=== PATIENT | male | born 1960 | race Caucasian/White ===

== ENCOUNTER 2022-03-18 10:44 | Emergency (ER) | payer OTHER ==
--- OUTSIDE RECORDS SUMMARY | 2022-03-18 11:09 | XMS REPORT | Continuity of Care Document ---
:1960 Author Organization [facility] t Address [address] [place] [address] [address]. [address] [place] [address] Care Team Providers Name Role Phone Asked, No Pcp Primary Care Physician Unavailable RUDI KAUR Attending Clinician Unavailable Problems This patient has no known problems. Allergies, Adverse Reactions, Alerts This patient has no known allergies or adverse reactions. Social History Social Habit Start Date Stop Date Quantity Comments Source Tobacco use and 2020-10-20 2020-10-20 Smokeless tobacco [facility] exposure 00:00:00 00:00:00 non-user Hospital Sex Assigned At [birth year] [facility] 00:[facility]00 [facility] Smoking Status Start Date Stop Date Source Never smoked tobacco [facility] Medications Ordered Filled Start Stop Current Ordering Indication Dosage Frequency Signature Comments Components Source Medication Medication Date Date Medication? Clinician (SIG) Name Name sodium,pota Yes Dispense Me th[facility] ssium,mag -[address] sulfates 00:00: follow Hospita (Suprep 00 directions l Bowel Prep per office Kit) 17.5-3.13-1 .6 gram recon soln levofloxaci Yes [facility] n [facility]-13 [facility] (LEVAQUIN) 00:00: Hospita 750 mg/150 00 l mL piggyback meloxicam Yes [facility] 15 mg 4-12 [facility] tablet,disi 00:00: Hospit a ntegrating 00 l pantoprazol Yes [facility] (PROTONIX) 00:00: Hospita 40 MG EC 00 l tablet tamsulosin Yes [facility] (FLOMAX) 07-10 st 0.4 mg 00:00: Hospita capsule 00 l Procedures This patient has no known procedures. Plan of Care Planned Activity Planned Date Details Comments Source Future Scheduled 2022-03-02 HEPATITIS B VACCINES Met [facility] Test 22:39:08 (1 of 3 - 3-dose series) [code = HEPATITIS B VACCINES (1 of 3 - 3-dose series)] Future Scheduled 2022-03-02 COVID-19 VACCINE (#1) [facility] Test 22:39:08 [code = COVID-19 VACCINE (#1)] Future Scheduled 2022-03-02 Hepatitis C screening [facility] Test 22:39:08 (procedure) [code = 168226503] Future Scheduled 2022-03-02 COLONOSCOPY SCREENING [facility] Test 22:39:08 [code = COLONOSCOPY SCREENING] Future Scheduled 2022-03-02 SHINGLES VACCINES (1 [facility] Test 22:39:08 of 2) [code = SHINGLES VACCINES (1 of 2)] Future Scheduled 2022-03-02 INFLUENZA VACCINE [facility] Test 22:39:08 [code = INFLUENZA VACCINE] Encounters Start End Encounter Admission Attending Care Care Encounter Source Date/Time Date/Time Type Type Clinicians Facility Department ID 2020-10-20 2020-10-20 Outpatient [facility] [id number] [place] 00:00:00 00:00:00 RUDI [id number] Results This patient has no known results.
[2022-03-18] MEDS ORDERED: NA CHLORIDE 0.9% 500 ML ONE (11:27)
--- NOTE | 2022-03-18 11:35 | RAD REPORT ---
EXAM DESCRIPTION: CT - Head Brain Wo Cont - 03/18/2022 11:23 am CLINICAL HISTORY: Syncope COMPARISON: None. TECHNIQUE: Computed axial tomography of the head was obtained. IV contrast was not requested. All CT scans are performed using dose optimization technique as appropriate and may include automated exposure control or mA/KV adjustment according to patient size. FINDINGS: An intracranial bleed is not seen . The ventricles are normal in caliber. No significant hypodense areas within the brain visualized No extra-axial fluid collection is noted. Fluid within the sinuses/ mastoids is not seen. IMPRESSION: No acute intracranial abnormality is seen. If patient's symptoms persist MRI of the bra in would be recommended.
--- NOTE | 2022-03-18 12:24 | RAD REPORT ---
EXAM DESCRIPTION: Nicholas Single View03/18/2022 12:12 pm CLINICAL HISTORY: cough COMPARISON: none FINDINGS: The lungs appear clear of acute infiltrate. The heart is normal size IMPRESSION: No acute abnormalities displayed
[2022-03-18 12:49] LABS: Urine Blood Negative (Negative); Urine Glucose Negative (Negative); Urine Protein Negative (Negative); Urine Specific Gravity 1.015 (1.005-1.030)
[2022-03-18] MEDS ORDERED: ASPIRIN 81 MG CHEWABLE TABLET ONE (12:50)
[2022-03-18 12:58] LABS: Absolute Lymphocytes (CBC) 0.6 K/uL (0.7-4.9); Hematocrit 41.6 % (39.6-49.0); Lymphocytes % 12.1 % (15.3-44.8); MCV 84.4 fL (80-100); MPV 7.3 fL (7.6-11.3); RBC Red Blood Cell Count 4.92 M/uL (4.33-5.43)
[2022-03-18 13:23] LABS: Albumin 3.9 g/dL (3.4-5.0); Bilirubin Direct 0.2 mg/dL (0-0.2); Bilirubin Total 0.7 mg/dL (0.2-1.0); Magnesium 2.2 mg/dL (1.8-2.4); Protein, Total 7.3 g/dL (6.4-8.2); Troponin High Sensitivity 5.5 pg/mL (<58.9)
[2022-03-18 13:25] LABS: Protime INR 1.22
--- NOTE | 2022-03-18 15:17 | RAD REPORT ---
EXAM DESCRIPTION: MRI - Brain W/Wo Cont - 03/18/2022 2:52 pm CLINICAL HISTORY: Dizziness Headache, drowsiness, dizziness COMPARISON: MRA Head Wo Cont dated 03/18/2022 TECHNIQUE: Multi-sequence, multiplanar MR imaging of the brain was performed with contrast. FINDINGS: No intracranial hemorrhage, hydrocephalus, or extra-axial fluid collection. No edema or sh ift of midline structures. No intracranial mass. DWI is negative for acute CVA. The midline structures are normally formed. Mastoid air cells and paranasal sinuses are clear. Post-contrast images show no abnormal enhancement to suggest tumor or infection. IMPRESSION: No acute or concerning intracranial abnormalities. No pathologic post-contrast enhancement suspected.
--- NOTE | 2022-03-18 15:24 | RAD REPORT ---
EXAM DESCRIPTION: MRI - MRA Head Wo Cont - 03/18/2022 2:52 pm CLINICAL HISTORY: CVA CVA COMPARISON: Head Brain Wo Cont dated 03/18/2022 FINDINGS: 3D noncontrast [id number] MR angiography of the [place] of [place] was performed. No aneurysm, flow-limiting stenosis or vascular malformation is seen. Forward flow seen in codominant vertebral arteries. The visualized dural venous sinuses appear patent. IMPRESSION: No significant flow abnormality of the [place] of [place] is identified.
--- NOTE | 2022-03-18 15:26 | RAD REPORT ---
EXAM DESCRIPTION: MRI - MRA Neck W/Wo Cont - 03/18/2022 2:52 pm CLINICAL HISTORY: Neuro deficit, acute, stroke suspected COMPARISON: No comparisons FINDINGS: Contrast enhance 2D [id number] MR angiography of the neck vessels was performed. A left aortic arch is present. Both common carotid arteries and subclavian arteries are patent. Both internal carotid arteries are patent without significant stenosis. Codominant vertebral arteries noted with forward flow. IMPRESSION: No significant flow abnormality of the neck vessels seen.
--- NOTE | 2022-03-18 15:33 | ER ---
Nurse's Notes [facility] Name: Masoud Lagos Age: 61 yrs Sex: Male : 1960 Arrival Date: 03/18/2022 Time: 10:52 Bed 6 Private MD: Karel Hogue H Diagnosis: Transient cerebral ischemic attack, unspecified;Other visual disturbances Presentation: 03/18 11:02 Chief complaint: Patient states: States he had an episode of dizziness and blurred ko1 vision lasting about 20 minutes while he was at work. 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 Patient states that everything has cleared up now. He also states he has started taking tumeric, honey, cinnamon and cleo "for inflammation" he has taken this twice a day yesterday and once today. He also is recovering from Covid a week ago. Coronavirus screen: At this time, the client does not indicate any symptoms associated with coronavirus-19. Ebola Screen: No symptoms or risks identified at this time. Initial Sepsis Screen: Does the patient meet any 2 criteria? No. Patient's initial sepsis screen is negative. Does the patient have a suspected source of infection? No. Patient's initial sepsis screen is negative. Risk Assessment: Do you want to hurt yourself or someone else? Patient reports no desire to harm self or others. Onset of symptoms was March 18, 2022 at 09:00. Care prior to arrival: IV initiated. 20 GA, in the left antecubital area, Glucose check: 108 Oxygen administered. via nasal cannula. 11:02 Method Of Arrival: EMS: [facility] ko1 11:02 Acuity: MARYCARMEN 3 ko1 Triage Assessment: 11:08 General: Appears in no apparent distress. comfortable, Behavior is calm, cooperative, ko1 appropriate for age. Pain: Denies pain. Historical: - Allergies: 11:08 No Known Allergies; ko1 - Home Meds: 11:08 Flomax 0.4 mg Oral cap 1 cap once daily [Active]; ko1 - Immunization history:: Adult Immunizations up to date. - Social history:: Smoking status: Patient denies any tobacco usage or history of. - Family history:: not pertinent. Screenin:13 Abuse screen: Denies threats or abuse. Denies injuries from another. Nutritional ko1 screening: No deficits noted. Tuberculosis screening: Fall Risk No fall in past 12 months (0 pts). No secondary diagnosis (0 pts). IV access (20 points). Ambulatory Aid- None/Bed Rest/Nurse Assist (0 pts). Gait- Normal/Bed Rest/Wheelchair (0 pts) Mental Status- Oriented to own ability (0 pts). Assessment: 11:13 General: Appears in no apparent distress. Behavior is calm, cooperative, appropriate ko1 for age. General: Reports. Pain: Denies pain. Neuro: No deficits noted. Cardiovascular: No deficits noted. Respiratory: No deficits noted. GI: No deficits noted. : No deficits noted. EENT: No deficits noted. Derm: No deficits noted. Musculoskeletal: No deficits noted. Vital Signs: 11:02 BP 152 / 76; Pulse 76; Resp 16; Temp 97; Pulse Ox 99% ; Weight 95.25 kg; Height 6 ft. 2 ko1 in. (187.96 cm); Pain 0/10; 11:13 BP 135 / 78; Pulse 70; Resp 16; Pulse Ox 100% ; Pain 0/10; ko1 12:30 BP 119 / 76; Pulse 73; Resp 18; Pulse Ox 100% on R/A; ph 13:30 BP 140 / 75; Pulse 72; Resp 20; Pulse Ox 100% on R/A; ph 14:40 BP 146 / 80; Pulse 70; Resp 16; Pulse Ox 100% on R/A; ph 15:55 BP 138 / 83; Pulse 71; Resp 18; Temp 97.1(TE); Pulse Ox 98% on R/A; ph 11:02 Body Mass Index 26.96 (95.25 kg, 187.96 cm) ko1 Vitals: 11:13 Cardiac Rhythm Assessment Regular Sinus rhythm. ko1 [place] Coma Score: 11:13 Eye Response: spontaneous(4). Verbal Response: oriented(5). Motor Response: obeys ko1 commands(6). Total: 15. ED Course: 10:52 Patient arrived in ED. eb 10:52 Karel Hogue MD is Private Physician. eb 10:52 Karel Hogue MD is Attending Physician. eb 11:00 Maryann Caballero, RADHA is Primary Nurse. ko1 11:08 Triage completed. ko1 11:08 Arm band placed on right wrist. Patient placed in an exam room, Patient notified of ko1 wait time. 11:13 Patient has correct armband on for positive identification. Bed in low position. Call ko1 light in reach. Side rails up X 1. 11:13 Maintain EMS IV. Dressing intact. Site clean \\T\\ dry. Gauge \\T\\ site: 20g left AC. IV is ko 1 patent, is intact, Flushed. 11:25 CT Head Brain wo Cont In Process Unspecified. EDMS 11:54 Basic Metabolic Panel Sent. ko1 11:54 CBC with Diff Sent. ko1 11:54 LFT's Sent. ko1 11:54 Magnesium Sent. ko1 11:54 NT PRO-BNP Sent. ko1 11:54 PT-INR Sent. ko1 11:54 Troponin HS Sent. ko1 12:14 XRAY Chest (1 view) In Process Unspecified. EDMS 14:53 Brain W/Wo Cont In Process Unspecified. EDMS 14:53 MRA Head Wo Cont In Process Unspecified. EDMS 14:53 MRA Neck W/Wo Cont In Process Unspecified. EDMS 15:32 Alex Milsl MD is Referral Physician. andrew 15:57 No provider procedures requiring assistance completed. IV discontinued, intact, ph bleeding controlled, No redness/swelling at site. Pressure dressing applied. Administered Medications: 11:54 Drug: NS 0.9% 500 ml Route: IV; Rate: bolus; Site: left antecubital; ko1 12:45 Follow up: Response: No adverse reaction; IV Status: Completed infusion; IV Intake: ph 500ml 12:40 Drug: Aspirin Chewable Tablet 324 mg Route: PO; aa5 15:57 Follow up: Response: No adverse reaction ph Medication: 11:13 VIS not applicable for this client. ko1 Intake: 12:45 IV: 500ml; Total: 500ml. ph Outcome: 15:32 Discharge ordered by . andrew 15:58 Discharged to home ambulatory, with significant other. ph 15:58 Condition: good 15:58 Condition: good 15:58 Discharge instructions given to patient, Instructed on discharge instructions, follow up and referral plans. medication usage, Demonstrated understanding of instructions, follow-up care, medications, Prescriptions given X 1. 15:58 Patient left the ED. ph Signatures: Dispatcher [employer] EDKarel Argueta MD MD cha Calderon, Audri RN RN aa5 Zuleyka Moraes RN RN Becka Roman Kathy, RN RN ko1 Corrections: (The following items were deleted from the chart) 11:11 11:02 Chief complaint: Patient states: States he had an episode of dizziness and ko1 blurred vision lasting about 20 minutes while he was at work. 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 Patient states that everything has cleared up now. ko1 11:11 11:02 Coronavirus screen: At this time, the client does not indicate any symptoms ko1 associated with coronavirus-19. ko1
--- NOTE | 2022-03-18 15:33 | EDPHYS ---
Physician Documentation [facility] Name: Masoud Lagos Age: 61 yrs Sex: Male : 1960 Arrival Date: 03/18/2022 Time: 10:52 Bed 6 Private MD: Karel Hogue H ED Physician Karel Hogue HPI: 03/18 12:09 This 61 yrs old Male presents to ER via EMS with complaints of VISUAL FIELD andrew CHANGE AND NEAR SYNCOPE. 12:09 The patient is experiencing decreased vision, floaters. Onset: The symptoms/episode andrew began/occurred just prior to arrival. Duration: the symptoms last 20 minute(s). Aggravated by nothing. Alleviated by nothing. Associated signs and symptoms: Pertinent positives: None. Pertinent negatives: None. The patient has experienced near-syncope, almost passed out, felt dizzy, felt faint. Associated injury: The patient did not suffer any apparent associated injury. Historical: - Allergies: 11:08 No Known Allergies; ko1 - Home Meds: 11:08 Flomax 0.4 mg Oral cap 1 cap once daily [Active]; ko1 - Immunization history:: Adult Immunizations up to date. - Social history:: Smoking status: Patient denies any tobacco usage or history of. - Family history:: not pertinent. ROS: 12:13 Constitutional: Negative for fever, chills, and weight loss, ENT: Negative for injury, andrew pain, and discharge, Neck: Negative for injury, pain, and swelling, Cardiovascular: Negative for chest pain, palpitations, and edema, Respiratory: Negative for shortness of breath, cough, wheezing, and pleuritic chest pain, Abdomen/GI: Negative for abdominal pain, nausea, vomiting, diarrhea, and constipation, Back: Negative for injury and pain, : Negative for injury, bleeding, discharge, and swelling, MS/Extremity: Negative for injury and deformity, Skin: Negative for injury, rash, and discoloration, Neuro: Negative for headache, weakness, numbness, tingling, and seizure, Psych: Negative for depression, anxiety, suicide ideation, homicidal ideation, and hallucinations, Allergy/Immunology: Negative for hives, rash, and allergies, Endocrine: Negative for neck swelling, polydipsia, polyuria, polyphagia, and marked weight changes, Hematologic/Lymphatic: Negative for swollen nodes, abnormal bleeding, and unusual bruising. 12:13 Eyes: Positive for visual disturbance, LEFT LOWER VISUAL FIELD. Exam: 12:14 Constitutional: This is a well developed, well nourished patient who is awake, alert, andrew and in no acute distress. Head/Face: Normocephalic, atraumatic. Eyes: Pupils equal round and reactive to light, extra-ocular motions intact. Lids and lashes normal. Conjunctiva and sclera are non-icteric and not injected. Cornea within normal limits. Periorbital areas with no swelling, redness, or edema. ENT: Nares patent. No nasal discharge, no septal abnormalities noted. Tympanic membranes are normal and external auditory canals are clear. Oropharynx with no redness, swelling, or masses, exudates, or evidence of obstruction, uvula midline. Mucous membranes moist. Neck: Trachea midline, no thyromegaly or masses palpated, and no cervical lymphadenopathy. Supple, full range of motion without nuchal rigidity, or vertebral point tenderness. No Meningismus. Chest/axilla: Normal chest wall appearance and motion. Nontender with no deformity. No lesions are appreciated. Cardiovascular: Regular rate and rhythm with a normal S1 and S2. No gallops, murmurs, or rubs. Normal PMI, no JVD. No pulse deficits. Respiratory: Lungs have equal breath sounds bilaterally, clear to auscultation and percussion. No rales, rhonchi or wheezes noted. No increased work of breathing, no retractions or nasal flaring. Abdomen/GI: Soft, non-tender, with normal bowel sounds. No distension or tympany. No guarding or rebound. No evidence of tenderness throughout. Back: No spinal tenderness. No costovertebral tenderness. Full range of motion. Male : Normal genitalia with no discharge or lesions. Skin: Warm, dry with normal turgor. Normal color with no rashes, no lesions, and no evidence of cellulitis. MS/ Extremity: Pulses equal, no cyanosis. Neurovascular intact. Full, normal range of motion. Neuro: Awake and alert, GCS 15, oriented to person, place, time, and situation. Cranial nerves II-XII grossly intact. Motor strength 5/5 in all extremities. Sensory grossly intact. Cerebellar exam normal. Normal gait. Psych: Awake, alert, with orientation to person, place and time. Behavior, mood, and affect are within normal limits. 12:14 ECG was reviewed by the Attending Physician. Vital Signs: 11:02 BP 152 / 76; Pulse 76; Resp 16; Temp 97; Pulse Ox 99% ; Weight 95.25 kg; Height 6 ft. 2 ko1 in. (187.96 cm); Pain 0/10; 11:13 BP 135 / 78; Pulse 70; Resp 16; Pulse Ox 100% ; Pain 0/10; ko1 12:30 BP 119 / 76; Pulse 73; Resp 18; Pulse Ox 100% on R/A; ph 13:30 BP 140 / 75; Pulse 72; Resp 20; Pulse Ox 100% on R/A; ph 14:40 BP 146 / 80; Pulse 70; Resp 16; Pulse Ox 100% on R/A; ph 15:55 BP 138 / 83; Pulse 71; Resp 18; Temp 97.1(TE); Pulse Ox 98% on R/A; ph 11:02 Body Mass Index 26.96 (95.25 kg, 187.96 cm) ko1 [place] Coma Score: 11:13 Eye Response: spontaneous(4). Verbal Response: oriented(5). Motor Response: obeys ko1 commands(6). Total: 15. MDM: 11:05 Patient medically screened. andrew 12:16 Differential diagnosis: Acute iritis of Acute glaucoma in Differential Diagnosis: andrew cardiac arrhythmia, cerebrovascular accident, GI bleed. Data reviewed: vital signs, nurses notes, lab test result(s), EKG, radiologic studies, CT scan, plain films. Data interpreted: surveillance system monitor: rate is 70 beats/min, rhythm is regular, Pulse oximetry: on room air is 100 %. Test interpretation: by ED physician or midlevel provider: ECG, plain radiologic studies. Counseling: I had a detailed discussion with the patient and/or guardian regarding: the presence of at least one elevated blood pressure reading (>120/80) during this emergency department visit, lab results, radiology results, the need for outpatient follow up, for definitive care, a spot washer, an opthalmologist, a neurologist. 03/18 11:10 Order name: Basic Metabolic Panel; Complete Time: 14:52 andrew 03/18 11:10 Order name: CBC with Diff; Complete Time: 14:52 [facility] 03/18 11:10 Order name: LFT's; Complete Time: 14:52 [facility] 03/18 11:10 Order name: Magnesium; Complete Time: 14:52 [facility] 03/18 11:10 Order name: NT PRO-BNP; Complete Time: 14:52 [facility] 03/18 11:10 Order name: PT-INR; Complete Time: 14:52 [facility] 03/18 11:10 Order name: Troponin HS; Complete Time: 14:52 [facility] 03/18 11:10 Order name: XRAY Chest (1 view); Complete Time: 14:52 [facility] 03/18 11:10 Order name: CT Head Brain wo Cont; Complete Time: 14:52 [facility] 03/18 12:39 Order name: Lipid Profile; Complete Time: 14:52 [facility] 03/18 12:49 Order name: Urine Dipstick-Ancillary; Complete Time: 14:52 [facility] 03/18 11:10 Order name: EKG; Complete Time: 11:11 [facility] 03/18 11:10 Order name: Cardiac monitoring; Complete Time: 11:15 [facility] 03/18 11:10 Order name: EKG - Nurse/Tech; Complete Time: 12:37 [facility] 03/18 11:10 Order name: IV Saline Lock; Complete Time: 11:15 [facility] 03/18 11:10 Order name: Labs collected and sent; Complete Time: 11:54 [facility] 03/18 11:10 Order name: O2 Per Protocol; Complete Time: 11:15 [facility] 03/18 11:10 Order name: O2 Sat Monitoring; Complete Time: 11:15 [facility] 03/18 11:10 Order name: Urine Dipstick-Ancillary (obtain specimen); Complete Time: 12:49 [facility] 03/18 12:41 Order name: Brain W/Wo Cont EDMS 03/18 12:42 Order name: MRA Head Wo Cont EDMS 03/18 12:43 Order name: MRA Neck W/Wo Cont EDMS EC:14 Rate is 73 beats/min. Rhythm is regular. QRS [place] is Normal. [place] interval is normal. QRS andrew interval is normal. QT interval is normal. No Q waves. T waves are Normal. No ST changes noted. Clinical impression: Normal ECG and No evidence of ischemia. Interpreted by me. Reviewed by me. Administered Medications: 11:54 Drug: NS 0.9% 500 ml Route: IV; Rate: bolus; Site: left antecubital; ko1 12:45 Follow up: Response: No adverse reaction; IV Status: Completed infusion; IV Intake: ph 500ml 12:40 Drug: Aspirin Chewable Tablet 324 mg Route: PO; aa5 15:57 Follow up: Response: No adverse reaction ph Disposition Summary: 03/18/22 15:32 Discharge Ordered Location: Home andrew Problem: new andrew Symptoms: have improved andrew Condition: Stable andrew Diagnosis - Transient cerebral ischemic attack, unspecified andrew - Other visual disturbances andrew Followup: andrew - With: Private Physician - When: 2 - 3 days - Reason: Recheck today's complaints, Continuance of care, Re-evaluation by your physician Followup: andrew - With: - When: 2 - 3 days - Reason: Recheck today's complaints, Re-evaluation by your physician Discharge Instructions: - Discharge Summary Sheet andrew - Visual Disturbances andrew - Transient Ischemic Attack andrew - Aspirin and Your Heart andrew Forms: - Medication Reconciliation Form andrew - Thank You Letter andrew - Antibiotic Education andrew - Prescription Opioid Use andrew - Work release form eb Prescriptions: - Lipitor 10 mg Oral Tablet - take 1 tablet by ORAL route once daily; 30 tablet; Refills: 0, Product andrew Selection Permitted Signatures: Dispatcher [employer] EDMS Karel Hogue MD MD cha Calderon, Audri RN RN aa5 Maryann Caballero RN RN ko1 Zuleyka Moraes RN ph Corrections: (The following items were deleted from the chart) 12:41 12:34 Brain Wo Cont+MRI.RAD.BRZ ordered. EDMS EDMS 12:42 12:35 MR STROKE PROTOCOL+MRI.RAD.BRZ ordered. EDMS EDMS 12:43 12:35 Neck With Cont+MRI.RAD.BRZ ordered. EDMS EDMS
--- NOTE | 2022-03-19 12:34 | EKG ---
Test Date: 2022-03-18 Test Time: 11:59:21 [employer]neyman Lineman: MEASUREMENT RESULTS: Intervals: Rate: 73 ID: [id number] QRSD: 96 QT: 388 QTc: 427 [place]: P: 42 ID: [id number] QRS: 40 T: 41 INTERPRETIVE STATEMENTS: Normal sinus rhythm Normal ECG No previous ECG available for comparison Electronically Signed On 03-19-22 12:32:30 CDT by Davy Vizcaino
[2022-03-19 18:16] VITALS: BP 138/83; TEMP 97.1; O2SAT 98
== END 2022-03-18 15:58 | disposition home or self-care (01) ==
LOC: ER 10:44
DX: G45.9 Transient cerebral ischemic attack, unspecified (principal)
CPT/HCPCS: 93005; 85025; 80048; 36415; 83735; 85610; 80061; 80076; 81003; 84484; 83880; 70450; 71045; 70553; 70544; 70549; 96360; 99284; A9577; J7040